=== PATIENT | female | born 1965 | race Hispanic/Latino ===

== ENCOUNTER → 2022-05-04 07:41 | Outpatient (CLI) | payer OTHER, SELFPAY ==
--- NOTE | 2022-05-04 | DI.RAD.S_ITS ---
PROCEDURE: XR LUMBAR SPINE 2-3V INDICATIONS: BACK PAIN TECHNIQUE: 3 views of the lumbar spine were acquired. COMPARISON: None. FINDINGS: Bones: 5 [id number] vertebrae are present. Slight leftward curvature. Grade 1 anterolisthesis of L4 on L5 secondary to facet arthrosis. Mild disc height loss at L4-5 and L5-S1. Moderate facet arthrosis L2 through S1. Soft tissues: Overlying bowel gas pattern is normal. No suspicious soft tissue calcifications. IMPRESSION: Moderate, multilevel facet arthrosis and mild lower lumbar degenerative disc disease. Dictated by: Heriberto Archuleta M.D. on 05/04/2022 at 8:22 Approved by: Heriberto Archuleta M.D. on 05/04/2022 at 8:22
== END ==
PROVIDERS: Referring Provider Internal Medicine Cardiovascular Disease; Visit Provider Internal Medicine Cardiovascular Disease
DX: M47.816 Spondylosis without myelopathy or radiculopathy, lumbar region (principal); M47.817 Spondylosis without myelopathy or radiculopathy, lumbosacral region; M51.36 Other intervertebral disc degeneration, lumbar region; M54.50 Low back pain, unspecified
CPT/HCPCS: 72100